=== PATIENT | male | born 1955 | race Caucasian/White ===

== ENCOUNTER 2019-05-17 11:52 | Emergency (ER) | payer SELFPAY ==
--- NOTE | 2019-05-17 12:26 | EDM.PDOC ---
ED HPI GENERAL MEDICAL PROBLEM - General Stated Complaint: HURT LOWER LEFT LEG Time Seen by Provider: 05/17/19 12:15 Source of Information: Reports: Patient History Limitations: Reports: No Limitations - History of Present Illness INITIAL COMMENTS - FREE TEXT/NARRATIVE: 63-year-old male who reports he was doing some work on his story wonders at his house yesterday and he was using a ladder that he had against the outside of the house. And apparently there was ice on the ground and the ladder slipped while he was about 4-6 feet up and he fell and a ratchet type fashion as the ladder slipped down and he banged on his left shoulder and his right elbow. He also caught his left lower leg between the rungs of the ladder and twisted it. He has minimal pain in his left shoulder and right elbow and is able to move those well without any problems but he does have moderate pain in his left lower leg just above the ankle and he is unable to bear weight on his left leg secondary to the pain. He reports the pain is a 4/10 now and is a dull and throbbing pain but when he tries to stand on the leg he reports the pain goes up to a 10/10 and is a sharp pain that shoots all the way up his leg. He did not his head. There was no loss of consciousness. He has no chest or abdominal pains. He has no back pains. He denies any neck pain. He presents via family vehicle private vehicle. He reports that he has been hobbling around his house not really putting any weight on his leg and using props for support. There are no other associated signs or symptoms. There are no other modifying factors. Onset: Other (Yesterday at 11 AM) Duration: Constant Location: Reports: Lower Extremity, Left Quality: Reports: Ache, Throbbing Severity: Moderate (to severe) Improves with: Reports: Immobilization, Other Worsens with: Reports: Other (Palpation. 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: Other (see below) (Nothing) LEFT LEG Pain Score (Numeric/FACES): 4 - Related Data Allergies Allergy/AdvReac Type Severity Reaction Status Date / Time No Known Allergies Allergy Verified 05/17/19 14:03 Home Meds: Home Meds Calcium Carbonate [Calcium] 500 mg PO BID 05/17/19 [History] Hydrocodone/Acetaminophen [[place] 5-325 Tablet] 1 - 2 tab PO Q6H PRN #14 tablet 05/17/19 [Rx] Past Medical History - Past Health History Medical/Surgical History: Denies Medical/Surgical History - Past Surgical History GI Surgical History: Reports: Colonoscopy Social & Family History - Tobacco Use Smoking Status *Q: Never Smoker - Alcohol Use Alcohol Use History: Yes Alcohol Use Frequency: Daily - Living Situation & Occupation 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[employer].) Review of Systems - Review of Systems Review Of Systems: See Below Constitutional: Reports: No Symptoms Eyes: Reports: No Symptoms Ears: Reports: No Symptoms Nose: Reports: No Symptoms Mouth/Throat: Reports: No Symptoms Respiratory: Reports: No Symptoms Cardiovascular: Reports: No Symptoms GI/Abdominal: Reports: No Symptoms Genitourinary: Reports: No Symptoms Musculoskeletal: Reports: Leg Pain (Left lower leg pain) Skin: Reports: Bruising (Left lower leg), Other (No open wounds) Neurological: Reports: No Symptoms ED EXAM, GENERAL - Physical Exam Exam: See Below Exam Limited By: No Limitations General Appearance: Alert, WD/WN, Mild Distress Eye Exam: Bilateral Eye: EOMI, Normal Inspection, PERRL Ears: Normal External Exam, Hearing Grossly Normal Ear Exam: Bilateral Ear: Auricle Normal Nose: Normal Inspection, Normal Mucosa, No Blood Throat/Mouth: Normal Inspection, Normal Lips, Normal Oropharynx, Normal Voice, No Airway Compromise Head: Atraumatic, Normocephalic Neck: Normal Inspection, Supple, Non-Tender, Full Range of Motion Respiratory/Chest: No Respiratory Distress, Lungs Clear, Normal Breath Sounds, No Accessory Muscle Use, Chest Non-Tender Cardiovascular: Normal Peripheral Pulses, Regular Rate, Rhythm, No JVD Peripheral Pulses: 2+: Radial (L), Radial (R), Dorsalis Pedis (L) GI/Abdominal: Normal Bowel Sounds, Soft, Non-Tender, No Mass Back Exam: Normal Inspection, Full Range of Motion Extremities: Normal Capillary Refill, Leg Pain (With ecchymosis over left distal lower leg and into ankle. There is some crepitus in the distal lower leg. ) Neurological: Alert, Oriented, CN II-XII Intact, Normal Cognition, No Motor/ Sensory Deficits EKG INTERPRETATION EKG Date: 05/17/19 Time: 14:26 Rhythm: NSR Rate (Beats/Min): 97 [place]: Normal P-Wave: Present QRS: Normal ST-T: Normal QT: Normal Comparison: NA - No Prior EKG (This is a normal EKG.) Course - Vital Signs Last Recorded V/S: Last Vital Signs Temp 36.8 C 05/17/19 11:58 Pulse 111 H 05/17/19 11:58 Resp 16 05/17/19 11:58 BP 151/94 H 05/17/19 11:58 Pulse Ox 98 05/17/19 11:58 - Orders/Labs/Meds Orders: Active Orders 24 hr Category Date Time Status Notify Provider Consults [RC] ASDIRECTED Care 05/17/19 13:31 Active Consult to Physician [CONS] Urgent Cons 05/17/19 13:29 Ordered Ankle Min 3V Lt [CR] Stat Exams 05/17/19 12:27 Taken Tibia Fibula Lt [CR] Stat Exams 05/17/19 12:27 Taken EKG 12 Lead [EK] Routine Ther 05/17/19 13:29 Ordered Labs: Laboratory Tests 05/17/19 05/17/19 Range/Units 13:40 13:40 WBC 10.5 (4.5-12.0) X10-3/uL RBC 4.50 (4.30-5.75) x10(6)uL Hgb 13.8 (13.5-17.8) g/dL Hct 39.7 (30.0-51.3) % MCV 88.3 (80-96) fL MCH 30.6 (27.7-33.6) pg MCHC 34.7 (32.2-35.4) g/dL RDW 13.3 (11.5-15.5) % Plt Count 361 (125-369) X10(3)uL MPV 7.6 (7.4-10.4) fL Neut % (Auto) 81.3 (46-82) % Lymph % (Auto) 10.9 L (13-37) % [place] % (Auto) 7.3 (4-12) % Eos % (Auto) 0 L (1.0-5.0) % Baso % (Auto) 0 (0-2) % Neut # (Auto) 8.5 H (1.6-8.3) # Lymph # (Auto) 1.1 (0.6-5.0) # [place] # (Auto) 0.8 (0.0-1.3) # Eos # (Auto) 0.0 (0.0-0.8) # Baso # (Auto) 0.0 (0.0-0.2) # Sodium 140 (135-145) mmol/L Potassium 3.6 (3.5-5.3) mmol/L Chloride 102 (100-110) mmol/L Carbon Dioxide 31 (21-32) mmol/L BUN 15 (7-18) mg/dL Creatinine 1.1 (0.70-1.30) mg/dL Est Cr Clr Drug Dosing 67.84 mL/min Estimated GFR (MDRD) > 60 (>60) BUN/Creatinine Ratio 13.6 (9-20) Glucose 97 (80-116) mg/dL Calcium 9.0 (8.6-10.2) mg/dL - Radiology Interpretation Free Text/Narrative:: X-ray of left ankle shows distal tibia fracture abutting the ankle. X-ray of left tib-fib shows a distal tibia fracture that is oblique, spiral and mildly displaced. - Re-Assessments/Exams Free Text/Narrative Re-Assessment/Exam: 05/17/19 13:10: Patient has a left distal tibia fracture that is closed. I have discussed the patient's case with Dr. Osborne, orthopedist, and he will review the films, see the patient and provide opinion. 05/17/19 13:35: Dr. Osborne has seen the patient and the patient will need operative repair. The plan is to do the surgery tomorrow at 1 PM. For now, Dr. Osborne recommends placing the patient in an orthotic boot and using crutches with no weightbearing on his left leg. I will give the patient a prescription for hydrocodone for pain. I have also ordered an EKG and basic labs for preoperative. The SALES REPRESENTATIVE [employer] is seeing the patient now. The patient will be discharged and will come back tomorrow for surgery. This was per Dr. Osborne. 05/17/19 14:29: Patient's lab tests are reassuringly normal. His EKG was normal as well. Anesthesia and orthopedics are arranging the surgery for tomorrow and then the patient will be discharged home. Departure - Departure Time of Disposition: 14:30 Disposition: Home, Self-Care 01 Condition: Good Clinical Impression: Closed left tibial fracture Qualifiers: Encounter type: initial encounter Tibia location: distal Fracture morphology: pilon Fracture alignment: displaced Qualified Code(s): S82.872A - Displaced pilon fracture of left tibia, initial encounter for closed fracture Fall from ladder Qualifiers: Encounter type: initial encounter Qualified Code(s): W11.XXXA - Fall on and from ladder, initial encounter - Discharge Information Prescriptions: Hydrocodone/Acetaminophen [[place] 5-325 Tablet] 1 - 2 tab PO Q6H PRN #14 tablet PRN Reason: Moderate to severe pain Instructions: Crutch Use, Adult, [id number], Tibial Fracture, Adult, Easy-to- Read Referrals: PCP,None [Primary Care Provider] - Forms: ED Department Discharge Additional Instructions: You have a fracture of your distal tibia or the big bone in your left lower leg. It is just above the ankle. As Dr. Osborne discussed with you, you will need surgery for this. The plan is for you to have surgery tomorrow. Follow Dr. Osborne 's instructions in regard to this. Use the crutches with no weightbearing on your left leg. Leave the boot in place at all times unless you are resting on the bed and you may remove the top half of the boot for comfort. Medication as prescribed for severe pain (hydrocodone 5/325). Back to the emergency department for marked increase in pain, cool/blue foot or toes or any other concerning sign or symptom. - My Orders Last 24 Hours: My Active Orders 05/17/19 12:27 Ankle Min 3V Lt [CR] Stat Tibia Fibula Lt [CR] Stat 05/17/19 13:29 Consult to Physician [CONS] Urgent EKG 12 Lead [EK] Routine 05/17/19 13:31 Notify Provider Consults [RC] ASDIRECTED - Assessment/Plan Last 24 Hours: My Active Orders 05/17/19 12:27 Ankle Min 3V Lt [CR] Stat Tibia Fibula Lt [CR] Stat 05/17/19 13:29 Consult to Physician [CONS] Urgent EKG 12 Lead [EK] Routine 05/17/19 13:31 Notify Provider Consults [RC] ASDIRECTED
--- NOTE | 2019-05-18 10:47 | CR ---
INDICATION: Fall with injury. LEFT TIBIA/FIBULA: Frontal and lateral views of the left tibia and fibula revealed a fairly severely comminuted fracture of the distal shaft of the tibia extending into the distal metaphysis with adequate position and alignment of the fracture fragments, there being approximately 2.5 mm lateral offset of one of the major distal tibial fracture fragments. The ankle mortise overall appears to be fairly intact. The fibula appears to be intact. IMPRESSION: Comminuted fracture of the distal tibia with adequate position and alignment suggested. MTDD
--- NOTE | 2019-05-18 10:49 | CR ---
INDICATION: Fall with injury. LEFT ANKLE: Three views of the left ankle revealed the ankle mortise to be fairly intact with a comminuted fracture of the distal shaft extending into the distal metaphysis of the tibia. The fibula appears to be intact. The talus appears to be intact. IMPRESSION: Comminuted fracture of the tibia. Adequate position and alignment is felt to be present. MTDD
== END 2019-05-17 15:20 | disposition home or self-care (01) ==
LOC: FB.ED 11:52
DX: S82.872A Displaced pilon fracture of left tibia, initial encounter for closed fracture (principal); W11.XXXA Fall on and from ladder, initial encounter; Y93.89 Activity, other specified; Y92.008 Other place in unspecified non-institutional (private) residence as the place of occurrence of the external cause
CPT/HCPCS: 36415; 73590-LT; 73610-LT; 80048; 85025; 93005; 93010; 99284; 99284-25

== ENCOUNTER 2019-05-18 10:30 | Day surgery (SDC) | payer SELFPAY ==
[~2019-05-18 10:30] MED LIST: Lactated Ringers 1,000 ML IV SCH; Sodium Chloride 0.9% 10 ML Syringe FLUSH PRN
[2019-05-18] MEDS ORDERED: fentaNYL 100 MCG/2 ML SDV IV ONE (10:31)
[2019-05-18] MEDS ORDERED: Lidocaine 1% PF 2 ML SDV INJECT ONE (10:31)
[2019-05-18] MEDS ORDERED: Ketamine 500 mg/10 ML MDV IV ONE (10:31)
[2019-05-18] MEDS ORDERED: Lactated Ringers 1,000 ML IV ONE (10:31)
[2019-05-18] MEDS ORDERED: HYDROmorphone 2 MG/ML SDV IV ONE (10:31)
[2019-05-18] MEDS ORDERED: Ketorolac 30 MG/ML SDV IVPUSH ONE (10:31)
[2019-05-18] MEDS ORDERED: Midazolam 1 MG/ML 2 ML SDV IV ONE (10:31)
[2019-05-18] MEDS ORDERED: Propofol 200 MG/20 ML SDV IV ONE (10:31)
--- NOTE | 2019-05-18 11:43 | PCM.CONS ---
H&P History of Present Illness - General Date of Service: 05/17/19 Admit Problem/Dx: Admission Diagnosis/Problem Admission Diagnosis/Problem Closed fracture of distal end of tibia Source of Information: Patient, Provider, RN History Limitations: Reports: No Limitations - History of Present Illness Symptom Onset Date: 05/16/19 Duration of Symptoms: Reports: Day(s): Location: Reports: Lower Extremity, Left Quality: Reports: Ache, Pressure, Stabbing, Throbbing Severity: Moderate Improves with: Reports: Immobilization Worsens with: Reports: Movement Associated Symptoms: Reports: No Other Symptoms - Related Data Allergies/Adverse Reactions: Allergies Allergy/AdvReac Type Severity Reaction Status Date / Time No Known Allergies Allergy Verified 05/17/19 14:03 Home Medications: Home Meds Calcium Carbonate [Calcium] 500 mg PO BID 05/17/19 [History] Hydrocodone/Acetaminophen [[place] 5-325 Tablet] 1 - 2 tab PO Q6H PRN #14 tablet 05/17/19 [Rx] Past Medical History HEENT History: Reports: None Cardiovascular History: Reports: None Respiratory History: Reports: None Gastrointestinal History: Reports: None Genitourinary History: Reports: Renal Calculus Musculoskeletal History: Reports: Fracture Other Musculoskeletal History: RESTLESS LEG SYNDROME. L DISTAL TIB FX Neurological History: Reports: None Psychiatric History: Reports: None Endocrine/Metabolic History: Reports: None Hematologic History: Reports: None Immunologic History: Reports: None Oncologic (Cancer) History: Reports: None Dermatologic History: Reports: None - Past Surgical History GI Surgical History: Reports: Colonoscopy Social & Family History - Family History Family Medical History: Noncontributory - Caffeine Use Caffeine Use: Reports: Tea H&P Review of Systems - Review of Systems: Review Of Systems: See Below General: Reports: No Symptoms HEENT: Reports: No Symptoms Pulmonary: Reports: No Symptoms Cardiovascular: Reports: No Symptoms Gastrointestinal: Reports: No Symptoms Genitourinary: Reports: No Symptoms Musculoskeletal: Reports: Leg Pain, Joint Pain, Joint Swelling, Muscle Pain Skin: Reports: No Symptoms Psychiatric: Reports: No Symptoms Neurological: Reports: No Symptoms Hematologic/Lymphatic: Reports: No Symptoms Immunologic: Reports: No Symptoms Exam - Exam Exam: See Below - Vital Signs Vital Signs: Last Vital Signs Temp 98.4 F 05/18/19 11:25 Pulse 98 05/18/19 11:25 Resp 20 05/18/19 11:25 BP 126/90 05/18/19 11:25 Pulse Ox 98 05/18/19 11:25 Weight: 198 lb 6.656 oz - Exam General: Alert, Oriented, Cooperative, Mild Distress HEENT: PERRLA, Conjunctiva Clear, EOMI, Hearing Intact, Posterior Pharynx Clear , Pupils Equal, Pupils Reactive Neck: Supple, Trachea Midline Lungs: Clear to Auscultation, Normal Respiratory Effort Cardiovascular: Regular Rate, Regular Rhythm GI/Abdominal Exam: Normal Bowel Sounds, Soft, Non-Tender, No Organomegaly Extremities: Joint Swelling, Leg Pain, Limited Range of Motion Peripheral Pulses: 2+: Posterior Tibial (L), Dorsalis Pedis (L) Skin: Warm, Dry, Intact Neurological: Cranial Nerves Intact Neuro Extensive - Mental Status: Alert, Oriented x3, Normal Mood/Affect, Normal Cognition, Memory Intact Psychiatric: Alert, Normal Affect, Normal Mood Consult PN Assessment/Plan POD#: 0 (1) Closed left tibial fracture SNOMED Code(s): 903374019 Code(s): S82.202A - UNSP FRACTURE OF SHAFT OF LEFT TIBIA, INIT FOR CLOS FX Current Visit: No Qualifiers: Encounter type: initial encounter Tibia location: distal Fracture alignment: displaced Problem List Initiated/Reviewed/Updated: Yes My Orders Last 24 Hours: My Active Orders 05/17/19 14:06 Resuscitation Status Routine 05/17/19 Dinner Nothing Per Oral Diet [DIET] 05/18/19 10:30 Patient Status [ADT] Routine Patient to Empty Bladder [RC] ASDIRECTED RT Incentive Spirometry [RC] ASDIRECTED Verify Patient Consent Obtain [RC] ASDIRECTED Lactated Ringers [Ringers, Lactated] 1,000 ml IV ASDIRECTED Sodium Chloride 0.9% [Saline Flush] 10 ml FLUSH ASDIRECTED PRN Peripheral IV Insertion Adult [OM.PC] Routine Sequential Compression Device [OM.PC] Routine 05/18/19 12:00 ceFAZolin [Ancef] 2 gm Premix Bag 1 bag IV ONETIME Plan: Assessment: 63-year-old male fell from a ladder and caught his left leg and one of the rungs of the ladder. He waited a day before coming to the emergency department. He was seen in the emergency department and evaluated and found to have a left displaced multi fragmentary tibial shaft fracture distally. No fibular fracture was present. He denied any previous injury to the left lower extremity. 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 EMG normal. CBC within normal limits. BMP within normal limits. Plan: I advised him that I recommend open reduction and internal fixation of the left distal tibia. Risks and benefits of the procedure were explained to the patient and informed consent was obtained. We'll plan on performing surgery tomorrow around noon.l Requesting Provider: ER Date Consult Requested: 05/17/19 Reason for Consult: left distal tibia fracture Patient History Reviewed: Yes Notified Requestor: Yes Time Spent (in minutes): 30
[2019-05-18] MEDS ORDERED: ceFAZolin 2 GM in Premix Bag 1 BAG IV ONE (12:00)
[2019-05-18] MEDS ORDERED: Bupivacaine 0.5%/EPINEPHrine 1:200,000 50 ML MDV INJECT ONE (12:14)
--- NOTE | 2019-05-18 13:50 | PCM.OPNOTE ---
- General Post-Op/Procedure Note Date of Surgery/Procedure: 05/18/19 Operative Procedure(s): orif left distal tibial shaft fracture Pre Op Diagnosis: left distal tibial shaft fracture, closed Post-Op Diagnosis: Same Anesthesia Technique: General ET Tube Primary Surgeon: Cory Osborne Retort Furnace Helper: Shiela Snyder EBL in mLs: 100 Complications: None Condition: Good
--- NOTE | 2019-05-18 14:33 | OR ---
DATE OF OPERATION: 05/18/2019 SURGEON: Cory Osborne DO PREOPERATIVE DIAGNOSIS: Left distal tibial shaft fracture, closed. POSTOPERATIVE DIAGNOSIS: Left distal tibial shaft fracture, closed. PROCEDURE: Open reduction and internal fixation, left distal tibial shaft. CAR HOP: Shiela Snyder NP. Nurse practitioner, Shiela Snyder NP, played an essential role in assisting in this case, helping to position the patient, retract structures as needed, as well as suturing and cutting sutures as indicated. Her presence improved patient's safety and decreased operative time. ANESTHESIA: General endotracheal intubation. FLUID: Lactated Ringer solution. ESTIMATED BLOOD LOSS: 200 mL. COMPLICATIONS: None. SPECIMEN: None. DISCHARGE DISPOSITION: Stable to PACU. INSTRUMENTATION: Whit AxSOS plate. HISTORY AND INDICATION FOR THE PROCEDURE: The patient was seen yesterday in the emergency department. The previous day, he had fallen off a ladder and had gotten his left lower extremity caught in the rungs. He was seen and evaluated at the emergency department where he was found to have a left distal tibial shaft fracture. He was placed into a Cam Walker boot and crutches and sent home. He was then seen preoperatively today. All risks and benefits of the procedure were explained to the patient. Informed consent was obtained. DETAILS OF PROCEDURE: The patient was seen preoperatively by myself and the Anesthesia staff in the preoperative holding area where the operative site was marked. He was brought to the operative suite by Anesthesia staff where general anesthesia was administered. A well-padded tourniquet was placed in the left thigh. The left lower extremity was then prepped and draped in a sterile manner. Time-out was called identifying the correct patient, the correct site, the correct procedure and then antibiotics had begun within an appropriate period of time. The left lower extremity was then exsanguinated. Tourniquet was raised to 250 mmHg and taken down at 90 minutes, sterilely draped. Fluoroscopy unit was used to visualize the area of the fracture site as well as placing the appropriate- sized plate on the tibia and then measuring the proximal and distal portions. I then created about 8 cm incision at both ends of the plate leaving the inside portion intact standard with a KILEY procedure. I was careful to avoid any neurovascular structures. After visualizing and exposing the distal medial malleolus, I then used an elevator subcutaneously to expose the bone over the tibia. I then inserted my plate. I took a few different times to readjust the plate. I placed some locking towers on and adjusted it and then held it in place with K-wires after placing some traction to get it out to length. Once I was satisfied with the position with the K-wires, I then placed 2 cortical screws proximally and distally and then re-evaluated on AP and lateral fluoroscopy that this was in fact in good position. I then placed my distal nonlocking screw followed by the distal locking screws followed by the proximal nonlocking screws, which were in good position. After I placed the proximal and distal locking screws, I placed 2 K-wires and then placed 2 4-0 cancellous cannulated screws in an AP direction to reduce the fracture in the coronal plane of the anterior distal tibia. This compressed quite nicely. One of these had a washer. I did that replacing both of the screws to make them shorter at the end of the procedure. I did remove one screw that was very close to the mortise which was one of the locking screws. I then took my final films which showed good reduction and good placement of the screws. I did test the syndesmosis under live fluoroscopy and found it to be intact. I then copiously irrigated with Betadine infused irrigation, applied local 0.25% bupivacaine with epinephrine along my incision sites and then closed my medial incisions with #1 Stratafix followed by con. The anterior and lateral incision for the cancellous screws were closed with 2-0 Vicryl with con. We then cleaned the excess blood off the leg and then applied Betadine-soaked Adaptic over the incisions followed by sponges followed by Shaheen wrap. He was then placed into his Cam Walker boot, allowed to awaken from anesthesia and taken to the PACU in stable condition. /[id number] BS/MODL
--- NOTE | 2019-05-18 15:42 | PCM.SN ---
- Free Text/Narrative Note: ANESTHESIA ACUTE PAIN SERVICE Date: 05/18/2019 Time: 1412 to 1424 Preoperative Dx: Left Distal Tibial Fracture Postoperative Rx: Left ORIF Tibial Fracture Procedure: Left Adductor Canal Nerve Block with Ultrasound [U/S] Guidance I was requested by Dr. Cory Osborne D.O. to provide a postoperative pain nerve block for this surgery. Monitors: NIBP, ECG, SpO2, heart rate and nasal cannula O2. Sedation: None given - the patient is immediately postsurgical. The patient was unresponsive to verbal stimuli throughout this procedure. The patient is supine with his left leg placed in a Frog-leg position. A preprocedure U/S scan was done locating the left Femoral Artery and the Sartorius Muscle clearly. The area was prepped with a Chlora-Prep sponge X 1 and allowed to dry. Due to the patient's current status no needle insertion site local anesthetic infiltration was used. Using aseptic technique and under direct U/S visualization, I inserted and advanced a 20 Ga. 4 In. Stimuplex Ultra 360 Insulated Echogenic Needle to a proper position next to the left Femoral Artery and below the Sartorius Muscle. Again under direct U/S visualization, a total volume of 30 ml's of .5% Naropin was given with frequent negative aspirations for blood. The Sartorius and the artery was nicely displaced. No apparent patient complications were noted including LAST. He was finally arousable and had no complaints. Documentation: Please see the U/S images taken which are stored in Radiology's PAC System. Thank you for using this service. Juan Renee CRNA [place]
[2019-05-18] MEDS ORDERED: Zolpidem 5 MG Tab PO PRN (19:14)
[2019-05-18] MEDS: Acetaminophen/oxyCODONE 325-5 MG Tab PO PRN (20:47)
[2019-05-19] MEDS: Acetaminophen/oxyCODONE 325-5 MG Tab PO PRN ×2 (04:29→10:21)
--- NOTE | 2019-05-19 09:28 | CR ---
INDICATION: Surgery. C-ARM FLUOROSCOPY IN OR, UP TO ONE HOUR: 1.2 minutes C-arm fluoroscopy time was utilized in OR during ORIF for comminuted distal tibial fracture. 72 C-arm fluoroscopy images were obtained during the procedure with the final images showing adequate position and alignment of the distal tibial shaft and metaphyseal fracture fragments and a plate with multiple screws in place. The ankle mortise appeared to be grossly intact. A definite complicating process was not identified. DEBO
--- NOTE | 2019-05-19 11:05 | PCM.DCSUM1 ---
Discharge Summary - Hospital Course HPI Initial Comments: 63-year-old male fell from a ladder and caught his left leg and one of the rungs of the ladder. He waited a day before coming to the emergency department. He was seen in the emergency department and evaluated and found to have a left displaced multi fragmentary tibial shaft fracture distally. No fibular fracture was present. He denied any previous injury to the left lower extremity. 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 Diagnosis: Stroke: No - Discharge Data Discharge Date: 05/19/19 Discharge Disposition: Home, Self-Care 01 Condition: Good - Referral to Home Health Primary Care Physician: PCP None - Patient Summary/Data Operative Procedure(s) Performed: orif left distal tibial shaft fracture Hospital Course: Patient had ORIF by Dr Brando Osborne on 05/18/2019. Had postoperative nerve block. Is eating and drinking well. Passing gas. Dr [facility] and asked if I would assess patient and discharge. He did have repeat tib/fib xray. - Patient Instructions Diet: Regular Diet as Tolerated Activity: Non Weight Bearing (LLE on crutches) Showering/Bathing: May Shower in 3 Days (without dressing) Notify Provider of: Fever, Swelling and Redness, Drainage Other/Special Instructions: Follow up in [address] Osborne. - Discharge Plan *PRESCRIPTION DRUG MONITORING PROGRAM REVIEWED*: No *COPY OF PRESCRIPTION DRUG MONITORING REPORT IN PATIENT AMINATA: No Prescriptions/Med Rec: Acetaminophen/oxyCODONE [Percocet 325-5 MG] 1 each PO Q6HR PRN #28 tab PRN Reason: Pain Zolpidem Tartrate [Ambien] 5 mg PO BEDTIME #14 tablet Home Medications: Home Meds Calcium Carbonate [Calcium] 500 mg PO BID 05/17/19 [History] Acetaminophen [Tylenol] 650 mg PO Q4H PRN 05/18/19 [History] Acetaminophen/oxyCODONE [Percocet 325-5 MG] 1 each PO Q6HR PRN #28 tab 05/18/19 [Rx] Zolpidem Tartrate [Ambien] 5 mg PO BEDTIME #14 tablet 05/18/19 [Rx] Oxygen Therapy Mode: Room Air - Discharge Summary/Plan Comment DC Time >30 min.: No - General Info Functional Status: Reports: Pain Controlled, Tolerating Diet - Review of Systems General: Reports: No Symptoms Pulmonary: Reports: No Symptoms Cardiovascular: Reports: No Symptoms Gastrointestinal: Reports: Abdominal Pain, Diarrhea, Difficulty Swallowing, Flatus, Nausea, Vomiting - Patient Data Vitals - Most Recent: Last Vital Signs Temp 98.5 F 05/19/19 08:00 Pulse 100 05/19/19 08:00 Resp 14 05/19/19 08:00 BP 142/86 H 05/19/19 08:00 Pulse Ox 95 05/19/19 08:00 Weight - Most Recent: 198 lb 6.656 oz Med Orders - Current: Current Medications Lactated Ringer's (Ringers, Lactated) 1,000 mls @ 125 mls/hr IV ASDIRECTED LILIA Last Admin: 05/18/19 11:54 Dose: 125 mls/hr Oxycodone/Acetaminophen (Percocet 325-5 Mg) 1 tab PO Q6H PRN PRN Reason: Pain Last Admin: 05/19/19 10:21 Dose: 1 tab Sodium Chloride (Saline Flush) 10 ml FLUSH ASDIRECTED PRN PRN Reason: Keep Vein Open Zolpidem Tartrate (Ambien) 5 mg PO BEDTIME PRN PRN Reason: Insomnia Last Admin: 05/18/19 20:47 Dose: 5 mg Discontinued Medications Bupivacaine HCl/Epinephrine Bitart (Marcaine 0.5%/Epinephrine 1:200,000) 30 ml INJECT .STK-MED ONE Stop: 05/18/19 12:15 Last Admin: 05/18/19 12:14 Dose: 30 ml Cefazolin Sodium/Dextrose 2 gm (/ Premix) 50 mls @ 100 mls/hr IV ONETIME ONE Stop: 05/18/19 12:29 Last Admin: 05/18/19 11:59 Dose: 100 mls/hr - Exam General: Reports: Alert, Oriented, Cooperative Lungs: Reports: Clear to Auscultation, Normal Respiratory Effort Cardiovascular: Reports: Regular Rate, Regular Rhythm GI/Abdominal Exam: Normal Bowel Sounds, Soft, Non-Tender, No Distention Wound/Incisions: Reports: Other (Walking boot on LLE)
--- NOTE | 2019-05-19 11:17 | US ---
INDICATION: Left adductor nerve block. ULTRASOUND RFA GUIDANCE: Multiple ultrasonic images were obtained during guidance for adductor nerve block. [facility]
--- NOTE | 2019-05-19 13:57 | CR ---
INDICATION: Postop. LEFT TIBIA/FIBULA: Frontal and lateral views of the left tibia and fibula revealed a long plate with numerous screws and additional independent screws fixing comminuted tibial fracture fragments in good position and alignment. The ankle mortise appears to be intact. A definite complicating process was not identified. Overlying skin con are noted. IMPRESSION: Satisfactory appearance postop ORIF distal tibial comminuted fracture site. [facility]
== END 2019-05-19 12:42 | disposition home or self-care (01) ==
LOC: FB.SDS 10:30 → FB.MS 14:44 → FB.SDS 05-19 12:42
PROVIDERS: ATTEND Orthopaedic Surgery
DX: S82.302A Unspecified fracture of lower end of left tibia, initial encounter for closed fracture (principal); G89.18 Other acute postprocedural pain; W11.XXXA Fall on and from ladder, initial encounter
CPT/HCPCS: 01480; 27758; 64447; 73590; 76000; A9270; J0690; J1170; J1885; J2001; J2250; J2704; J3010; J3490; J7120